=== PATIENT | female | born 1965 | race Caucasian/White ===

== ENCOUNTER 2018-02-03 10:53 | Day surgery (SDC) | payer OTHER ==
[2018-02-03] MEDS ORDERED: ceFAZolin 2 GM/SWFI 2 GM/20 ML SYR IVP ONE (11:09)
[2018-02-03] MEDS ORDERED: LIDOCAINE 1% 2 ML INJ ID PRN (11:10)
[2018-02-03] MEDS ORDERED: LR 1,000 ML IV ONE (11:10)
[2018-02-03] MEDS ORDERED: MIDAZOLAM 2 MG/2 ML VIAL IVP ONE (12:02)
--- NOTE | 2018-02-03 12:03 | PDANEPAE ---
ANE History of Present Illness LEFT TOE PAIN ANE Past Medical History - Cardiovascular History Hx Hypertension: No Hx Arrhythmias: No Hx Chest Pain: No Hx Coronary Artery / Peripheral Vascular Disease: No Hx CHF / Valvular Disease: No Hx Palpitations: No - Pulmonary History Hx COPD: No Hx Asthma/Reactive Airway Disease: No Hx Recent Upper Respiratory Infection: No Hx Oxygen in Use at Home: No Hx Sleep Apnea: No Sleep Apnea Screening Result - Last Documented: Negative - Neurologic History Hx Cerebrovascular Accident: No Hx Seizures: No Hx Dementia: No - Endocrine History Hx Diabetes: No - Renal History Hx Renal Disorders: No - Liver History Hx Hepatic Disorders: No - Neurological & Psychiatric Hx Hx Neurological and Psychiatric Disorders: No - Cancer History Hx Cancer: No Cancer History Comment: MELANOMA REMOVED - Congenital Disorder History Hx Congenital Disorders: No - GI History Hx Gastrointestinal Disorders: No - Other Health History Other Health History: NEG - Chronic Pain History Chronic Pain: Yes (L TOE PAIN) - Surgical History Prior Surgeries: R HIP LABRAL REPAIR. MELANOMA. BREAST IMPLANTS ANE Review of Systems Review of Systems: - Exercise capacity METS (RN): 6 METS ANE Patient History - Allergies Allergies/Adverse Reactions: erythromycin base Allergy (Verified 01/29/18 11:11) Hives - Home Medications Home Medications: Multivitamin (*) 01/29/18 [Last Taken 01/27/18] Probiotic 01/29/18 [Last Taken 01/27/18] - NPO status NPO Since - Liquids (Date): 02/03/18 NPO Since - Liquids (Time): 08:30 NPO Since - Solids (Date): 02/02/18 NPO Since - Solids (Time): 20:30 - Smoking Hx Smoking Status: Never smoked - Family Anes Hx Family Hx Anesthesia Complications: UNK ANE Labs/Vital Signs - Vital Signs Blood Pressure: 99/57 Heart Rate: 58 Respiratory Rate: 15 O2 Sat (%): 97 Height: 160.02 cm Weight: 54.431 kg ANE Physical Exam - Airway Neck exam: FROM Mallampati Score: Class 1 Mouth exam: normal dental/mouth exam - Pulmonary Pulmonary: no respiratory distress - Cardiovascular Cardiovascular: regular rate and rhythym - ASA Status ASA Status: I ANE Anesthesia Plan Anesthesia Plan: MAC
[2018-02-03] MEDS ORDERED: POLYMYXIN B SULFATE 500,000 UNIT/10 ML SYR IRR ONE (12:10)
[2018-02-03] MEDS ORDERED: BUPIVACAINE 0.5% 30 ML SDV ONE (12:10)
[2018-02-03] MEDS ORDERED: BACITRACIN 50,000 UNITS/10 ML SYR IRR ONE (12:11)
--- NOTE | 2018-02-03 12:19 | PDHPUP ---
History & Physical Update H&P update statement: This history and physical update is based on an assessment of the patient which was completed after admission or registration (within 24 hours), but prior to the surgery/procedure. H&P update: no change in patient's condition since H&P completed
[2018-02-03] MEDS ORDERED: fentaNYL 100 MCG/2 ML INJ ONE (12:35)
[2018-02-03] MEDS ORDERED: PROPOFOL/EMULSION 500 MG/50 ML BOTTLE IV ONE (12:35)
[2018-02-03] MEDS ORDERED: ONDANSETRON 4 MG/2 ML VIAL IVP PRN (13:05)
[2018-02-03] MEDS ORDERED: HYDROmorphONE/DILAUDID 2 MG/ML INJ IVP PRN (13:05)
[2018-02-03] MEDS ORDERED: NALOXONE HCL 0.4 MG/ML INJ IVP PRN (13:05)
[2018-02-03] MEDS ORDERED: HYDROCODONE/APAP 5/325 TAB PO PRN (13:05)
[2018-02-03] MEDS ORDERED: fentaNYL 100 MCG/2 ML INJ IVP PRN (13:05)
[2018-02-03] MEDS ORDERED: DEXAMETHASONE 4 MG/ML VIAL IVP PRN (13:05)
[2018-02-03] MEDS ORDERED: PROMETHAZINE HCL 25 MG/ML INJ IVP PRN (13:05)
[2018-02-03] MEDS ORDERED: DEXAMETHASONE 4 MG/ML VIAL ONE (13:38)
--- NOTE | 2018-02-03 13:53 | POSTANESTH ---
Post Anesthetic Evaluation Cardiovascular Status: Normal, Stable Respiratory Status: Normal, Stable Level of Consciousness/Mental Status: Can Participate in Eval Pain Control: Adequate, Prn Tx Ordered Nausea/Vomiting Control: Adequate, Prn Tx Ordered Complications Possibly Related to Anesthesia: None Noted
--- NOTE | 2018-02-03 14:09 | POSTOPPROG ---
Post Op Note Date of Operation: 02/03/18 Surgeon: Sami Cardona Materials Specialist: none Anesthesiologist: Bret Pre-op Diagnosis: hallux rigidus left foot Post-op Diagnosis: same as above Indication: pain Procedure: bunionectomy with 1st MPJ implant left Findings: c/w dx Inf/Abcess present in the surg proc area at time of surgery?: No Complications: none Specimen(s): none
[2018-02-03] MEDS ORDERED: HYDROCODONE/APAP 5/325 TAB ONE (14:22)
[2018-02-03 14:28] VITALS: BP 107/74
--- NOTE | 2018-02-04 13:59 | GOP ---
[f rep st] OPERATIVE REPORT DATE OF OPERATION: 02/03/2018 SURGEON: Sami Cardona DPM DATABASE REPORT WRITER: None. ANESTHESIA: MAC with local 20 mL of 0.5% Marcaine plain. PREOPERATIVE DIAGNOSIS: 1. Hallux rigidus, left foot. 2. Metatarsus primus varus, left foot. 3. Congenital anomaly of toe, left foot. 4. Transient synovitis, left foot. POSTOPERATIVE DIAGNOSIS: 1. Hallux rigidus, left foot. 2. Metatarsus primus varus, left foot. 3. Congenital anomaly of toe, left foot. 4. Transient synovitis, left foot. PROCEDURE PERFORMED: 1. Repair of hallux rigidus with implant, left foot. 2. First metatarsal osteotomy with bone graft, left foot. 3. Osteotomy of first proximal phalanx, left foot. 4. Arthocentesis, left foot. FINDINGS: Gross findings consistent with diagnosis. ESTIMATED BLOOD LOSS: Zero. DESCRIPTION OF PROCEDURE: After identification, the patient is brought in the operating room and mert mayela on the operating table in the supine position. Following IV sedation and local anesthesia was ob tained around the left foot utilizing a total of 20 mL of 0.5% Marcaine plain. Pneumatic ankle tourn iquet was placed around the patient's left ankle with ample padding. The foot was then scrubbed, pre pped and draped in the usual aseptic manner. An Esmarch bandage was utilized exsanguinating the preet ent's left foot and pneumatic ankle was then inflated. Attention was first directed to the medial aspect of the patient's left foot where a 5 cm linear long itudinal incision was made medial to the first metatarsophalangeal joint. This incision was deepened through the subcutaneous tissue to the level of the joint capsule with care being taken to identify and retract all vital neural and vascular structures. Bleeders were ligated and cauterized as necess nicolas. A lenticular capsulorrhaphy with performed on the medial aspect of the first metatarsophalangea l joint. Capsular structures were reflected dorsally and plantarly thus exposing the first metatarso phalangeal joint of the operative site. It was noted that approximately 70% of the cartilage has been denuded from the surface of the first m etatarsal head. Extensive periarticular bone spur formation is present. McGlamry elevator was inser mehdi from medial to lateral between the metatarsal head and the sesamoid apparatus to serve as a relea se of adhesions and lateral ligamentous release at the first metatarsophalangeal joint. Upon complet ion of this release, the first metatarsophalangeal joint is noted to be more mobile. Attention was then directed to the medial aspect of the first metatarsal where a [id number] Z-shaped scarf osteotomy was made using a osteotomy guide. Upon completion of this [id number] gh Z-shaped osteotomy in the head, neck and shaft of the first metatarsal bone, additional cuts were made parallel to these cuts at both the proximal and distal horizontal wing of the osteotomy. A wedg e of bone was removed from both the proximal and distal end of the osteotomy allowing the first metat arsal to shorten approximately 4 mm. The capital fragment was also translated laterally into a more rectus position. Following temporary fixation, 2 x 3.5 headless Arthrex screws are driven obliquely across the osteotomy creating a fairly stable fixation. Redundant medial bone shelf was excised, rem odeled, and reinserted into the osteotomy site to serve as a bone graft. Fixation was noted to excel lent at this time and position is noted to be anatomic. Attention is then directed to the first metatarsophalangeal joint where a Cartiva implant is implante d into the first metatarsal head using standard technique. Upon completion of this implant, all olvin ining osteophytes were removed from around the head of the first metatarsal and base of the first pro ximal phalanx. The joint has been put through range of motion and articulation is noted to be smooth and excellent. The first ray is then evaluated and it is noted that the hallux is still in an abducted position. De cision was made to make an osteotomy in the first proximal phalanx. A medially-based wedge osteotomy was then performed through the original incision in the base of the first proximal phalanx leaving t he lateral cortex intact. Upon removal of this wedge of bone, the osteotomy site is approximated tra nslating the hallux into a more rectus position on the first metatarsal. Following temporary fixatio n, a Nitinol staple was used over the osteotomy site to serve as stable fixation. Position of the fi rst toe and first ray are noted to be excellent at this time. The range of motion of the first MPJ i s noted to be excellent at this time. The incision site was then flushed with normal sterile saline solution. Capsular structures were asmita pproximated utilizing 2-0 Vicryl, the subcutaneous tissue was reapproximated utilizing 3-0 Vicryl and the skin was reapproximated utilizing 5-0 Vicryl in a running subcuticular suture technique. 4 mg o f dexamethasone was then injection into the the patient's left foot at the conclusion of this procedu re. The incision site was then dressed with Steri-Strips, Reese silk, 4 x 4 gauze, Webril, Parul, Ac e bandage. The patient was transported to the postoperative recovery with all vital signs stable and vascular status intact to the left foot. The patient tolerated the procedure and anesthesia well. HEMOSTASIS: Left pneumatic ankle tourniquet inflated to 250 mmHg for 45 minutes. MATERIALS: 1. Cartiva implant. 2. 3.5 headless Arthrex screw x2, Nitinol staple x1, 2-0, 3-0 and 5-0 Vicryl. INJECTABLES: 4 mg of dexamethasone, left foot. CONDITION: Stable. /[id number]/MODL
== END 2018-02-03 15:40 | disposition home or self-care (01) ==
LOC: FSGY 10:53
PROVIDERS: ATTEND Podiatrist
PROC: 0QBP0ZZ Excision of Left Metatarsal, Open Approach (ICD-10-PCS; principal; 2018-02-03 12:30)
PROC: 0QBR0ZZ Excision of Left Toe Phalanx, Open Approach (ICD-10-PCS; principal; 2018-02-03 12:30)
PROC: 0SRN0JZ Replacement of Left Metatarsal-Phalangeal Joint with Synthetic Substitute, Open Approach (ICD-10-PCS; principal; 2018-02-03 12:30)
DX: M20.22 Hallux rigidus, left foot (principal); Q66.21 Congenital metatarsus primus varus; Q66.89 Other specified congenital deformities of feet; M67.372 Transient synovitis, left ankle and foot
CPT/HCPCS: C1713; J0690; J1100; J2250; J2704; J3010